=== PATIENT | female | born 1950 | race Caucasian/White ===

== ENCOUNTER 2018-11-23 00:30 | Emergency (ER) | payer SELFPAY ==
[~2018-11-23] VITALS: Ht 157.5 cm; Wt 87.0 kg
[2018-11-23 00:35] VITALS: BP 188/96; PULSE 80; RESP 18; Ht 157.5 cm; Wt 87.0 kg
== END 2018-11-23 05:00 | disposition left against medical advice (07) ==
LOC: E/R 00:30
DX: Z53.21 Procedure and treatment not carried out due to patient leaving prior to being seen by health care provider (principal)